=== PATIENT | female | born 1965 ===

== ENCOUNTER 2021-03-09 08:00 | Outpatient (CLI) | payer OTHER | END 2021-03-09 08:30 | disposition home or self-care (01) | LOC: PPH VACUNA 08:00 | PROVIDERS: ATTEND Emergency Medicine Pediatric Emergency Medicine | DX: Z23 Encounter for immunization (principal) ==

== ENCOUNTER 2021-11-09 13:15 | Outpatient (CLI) | payer OTHER | END 2021-11-09 13:25 | disposition home or self-care (01) | LOC: PPH VACUNA 13:15 | PROVIDERS: ATTEND Emergency Medicine Pediatric Emergency Medicine | DX: Z23 Encounter for immunization (principal) ==